=== PATIENT | male | born 1980 | race Caucasian/White ===

== ENCOUNTER 2019-08-03 15:31 | Emergency (ER) | payer OTHER ==
[~2019-08-03] VITALS: Ht 188 cm; Wt 117.9 kg
[~2019-08-03 15:31] MED LIST: LEVAQUIN500 MG PO; NORCO 5-325 TA1 EACH PO; OMEPRAZOLE20 MG PO; PERCOCET 5-3251 EACH PO; ZOFRAN ODT8 MG PO
[2019-08-03] MEDS ORDERED: OMEPRAZOLE40 MG PO (15:40)
[2019-08-03] MEDS ORDERED: LOSARTAN-HCTZ1 EAC1 PO (15:41)
[2019-08-03] MEDS ORDERED: VENTOLIN HFA18 GM INH (15:41)
[2019-08-03] MEDS ORDERED: AMLODIPINE BESY10 MG PO (15:41)
--- NOTE | 2019-08-04 18:30 | EKG ---
[facility] [address] [facility] [place], [place] [address] Signed Normal sinus rhythm Possible Left atrial enlargement Left ventricular hypertrophy Nonspecific T wave abnormality Abnormal ECG No previous ECGs available Confirmed by KATY WU DO ([id number]) on 08/04/2019 6:30:36 PM Electronically Signed By: KATY WU DO 08/04/19 1830 PATIENT NAME: KATHLEEN COTTO Electrocardiogram DATE OF : 82 PHYSICIAN: KATY WU DO REPORT #: [id number] REPORT IS CONFIDENTIAL AND NOT TO BE RELEASED WITHOUT AUTHORIZATION
== END 2019-08-03 18:28 | disposition home or self-care (01) ==
LOC: ED 15:31
DX: I48.91 Unspecified atrial fibrillation (principal); I10 Essential (primary) hypertension; K21.9 Gastro-esophageal reflux disease without esophagitis; F17.200 Nicotine dependence, unspecified, uncomplicated; Z79.899 Other long term (current) drug therapy
CPT/HCPCS: 71045; 80053; 83735; 84443; 84484; 85025; 93005; 93010; 99285-25

== ENCOUNTER 2020-10-19 14:36 | Emergency (ER) | payer OTHER ==
[~2020-10-19] VITALS: Ht 188 cm; Wt 117.9 kg
[~2020-10-19 14:36] MED LIST changes: +AMLODIPINE BESY10 MG PO; +LOSARTAN-HCTZ1 EAC1 PO; +OMEPRAZOLE40 MG PO; +VENTOLIN HFA18 GM INH
[2020-10-19] MEDS ORDERED: BISOPROLOL FUMA10 MG PO (19:59)
--- NOTE | 2020-10-20 02:28 | EKG ---
[facility] [address] [place] [address] Signed Sinus rhythm with 1st degree AV block Left axis deviation Voltage criteria for left ventricular hypertrophy Nonspecific T wave abnormality Abnormal ECG When compared with ECG of 19-OCT-2020 15:00, (Unconfirmed) Sinus rhythm has replaced Atrial fibrillation Inverted T waves have replaced nonspecific T wave abnormality in Inferior leads Nonspecific T wave abnormality, improved in Lateral leads Confirmed by JEAN CARLOS ARANA MD ([id number]) on 10/20/2020 2:28:55 AM Electronically Signed By: JEAN CARLOS ARANA MD 10/20/20 0228 PATIENT NAME: KATHLEEN COTTO Electrocardiogram DATE OF : 82 PHYSICIAN: JEAN CARLOS ARANA MD REPORT #: [id number] REPORT IS CONFIDENTIAL AND NOT TO BE RELEASED WITHOUT AUTHORIZATION
--- NOTE | 2020-10-20 02:28 | EKG ---
[facility] [address] [facility] [place] [address] Signed Atrial fibrillation Left axis deviation Voltage criteria for left ventricular hypertrophy Abnormal ECG When compared with ECG of 03-AUG-2019 15:39, Atrial fibrillation has replaced Sinus rhythm Nonspecific T wave abnormality now evident in Inferior leads Nonspecific T wave abnormality has replaced inverted T waves in Lateral leads Confirmed by JEAN CARLOS ARANA MD ([id number]) on 10/20/2020 2:28:11 AM Electronically Signed By: JEAN CARLOS ARANA MD 10/20/20 0228 PATIENT NAME: KIRTIMOYCAROLINA MULTANI Electrocardiogram DATE OF : 82 PHYSICIAN: JEANC ARLOS ARANA MD REPORT #: [id number] REPORT IS CONFIDENTIAL AND NOT TO BE RELEASED WITHOUT AUTHORIZATION
== END 2020-10-19 21:02 | disposition home or self-care (01) ==
LOC: ED 14:36
DX: I48.91 Unspecified atrial fibrillation (principal); K21.9 Gastro-esophageal reflux disease without esophagitis; I10 Essential (primary) hypertension; F17.200 Nicotine dependence, unspecified, uncomplicated; Z79.899 Other long term (current) drug therapy
CPT/HCPCS: 71045; 80053; 83735; 84443; 84484; 85025; 85379; 93005; 93010; 99152; 99285-25; J2270; J7030

== ENCOUNTER 2024-12-11 10:00 | Day surgery (SDC) | payer BC, OTHER ==
[~2024-12-11] VITALS: Ht 185.4 cm; Wt 127.0 kg
[~2024-12-11 10:00] MED LIST changes: +BISOPROLOL FUMA10 MG PO; +CEFAZOLIN SODIUM 3 GM in SODIUM CHLORIDE 0.9% 100 ML IV SCH; +FLECAINIDE ACET50 MG PO; +HEParin SOD (PORCINE) 5,000 UNIT/ML SDV SUB-Q SCH; +IBLOOD GLUCOSE TEST STRIP 1 EA TEST VI PRN; +INDAPAMIDE1.25 MG PO; +LACTATED RINGER'S 1,000 ML IV SCH; +LIDOCAINE HCL 1% 5 ML SDV INJ ONE; +METFORMIN HCL500 MG PO; +POTASSIUM CHLO20 ME2 PO; +VITAMIN D21250 MCG PO; +VITAMIN D310 MC5 PO; +metroNIDAZOLE/SODIUM CHLORIDE 100 ML IV ONE
[2024-12-11 10:11] VITALS: BP 183/105
--- NOTE | 2024-12-11 10:36 | NUR ---
LINDA AT IS WAITING AND IS HAIR MACHINE OPERATOR.
[2024-12-11] MEDS ORDERED: MIDAZOLAM HCL 2 MG/2 ML VIAL ONE (10:49)
[2024-12-11] MEDS ORDERED: BUPIVACAINE 0.75% IN DEXTROSE 2 ML AMP ONE (10:49)
[2024-12-11 10:55] VITALS: BP 176/98
--- NOTE | 2024-12-11 10:57 | NUR ---
PUBLIC ADMINISTRATION TEACHER IN TO TALK WITH PT AND HEPARIN GIVEN TO PUBLIC ADMINISTRATION TEACHER AP.
--- NOTE | 2024-12-11 11:19 | NUR ---
1105 TO 1115 CLIENT DEVELOPMENT DIRECTOR DID SADDLE BLOCK SEE ANESTHESIA RECORD. PT SITTING ON SIDE OF BED TILL 1125.
[2024-12-11] MEDS ORDERED: LIDOCAINE HCL 2% 5 ML SDV ONE (11:22)
[2024-12-11] MEDS ORDERED: metroNIDAZOLE/SODIUM CHLORIDE 100 ML IV ONE (11:29)
[2024-12-11] MEDS ORDERED: IBUPROFEN600 MG PO (12:22)
[2024-12-11] MEDS ORDERED: ACETAMINOPHEN500 MG PO (12:22)
[2024-12-11] MEDS ORDERED: OXYCODON-ACETA1 EAC2 PO (12:22)
[2024-12-11] MEDS ORDERED: ACETAMINOPHEN 500 MG TAB PO PRN (12:30)
[2024-12-11] MEDS ORDERED: LACTATED RINGER'S 1,000 ML IV SCH (12:30)
[2024-12-11] MEDS ORDERED: NALOXONE HCL 0.4 MG SYR IV PRN (12:30)
[2024-12-11] MEDS ORDERED: IBUPROFEN 600 MG TAB PO PRN (12:30)
[2024-12-11] MEDS ORDERED: OXYCODONE/APAP 7.5/325 TAB PO PRN (12:30)
--- NOTE | 2024-12-11 12:43 | NUR ---
returned call light given at bs.
[2024-12-11 13:15] VITALS: BP 178/100
--- NOTE | 2024-12-11 13:26 | NUR ---
1315 HAS BEEN UP TO VOID 900MLS. CAN GO HOME NOW.REVIEWED ALL DC INSTRUCTIONS WITH TP. AND . STATES THEY UNDERSTAND AND NO QUESTIONS. DRESSING SUPPLIES GIVEN JOSE WRIGHT.
--- NOTE | 2024-12-11 14:25 | NUR ---
12/11/24 1425 Luisa,Jeanie 1208 PT ARRVIED TO PACU ON RA AND TALKING TO RN. PT DENIES CONCERNS. PT DOES REPORT SMALL AMOUNT OF PAIN 02/27, "I AM STARTING TO FEEL IT." 1225 MD AT BEDSIDE TALKING TO PT. HOB INCREASED AND PT SIPPING WATER WITH NO CONCERNS. VSS. PLAN OF CARE DISCUSSED. 1235 PT RETURNED TO DS AND PLAN OF CARE DISCUSSED. VSS AND REPORT GIVEN.
--- NOTE | 2024-12-11 18:26 | OR ---
[facility] [address] [place], [place] [address] Signed DATE OF OPERATION: 12/11/2024 SURGEON: Lashae Ontiveros MD PREOPERATIVE DIAGNOSIS: Recurring pilonidal cystic disease. POSTOPERATIVE DIAGNOSIS: Recurring pilonidal cystic disease. PROCEDURE: Excision of pilonidal cyst. ANESTHESIA: Spinal with IV sedation, Kalyn Steele SAP ABAP PROGRAMMER and Sawyer Paige SAP ABAP PROGRAMMER and local 10 mL of 0.25% Marcaine with epinephrine. INDICATION: This large, very hirsute 44-year-old white man is a patient of JERONIMO Colvin. He has had episodic swelling and pain in the internatal cleft for more than a year. His symptoms have lasted at least two years upon clinical review. He has had no signs of sepsis related to this. He has had reasonably good control of his symptoms lately. Examination shows multiple pits in the internatal cleft and an area of ongoing chronic inflammation. He is admitted at this time to undergo excision of pilonidal cystic problem. We are anticipating wound packing as a primary mode of wound healing. He understands as does his the risk of bleeding, infection, recurrence, and other unforeseen complications. FINDINGS: There is no sign of abscess at this time. The tissue was fibrotic. There were multiple sinuses and pits in the internatal cleft with hair within them. Extension to the left lateral aspect was excised additionally. He tolerated procedure well. DESCRIPTION OF PROCEDURE: The patient was brought to the operating room. After undergoing a spinal anesthetic in the preop area, placed in prone mingo-knife position. Intravenous sedation was given as well. Preoperative antibiotic Ancef and Flagyl had been used. The buttocks were taped apart and the copious amounts of hair in the buttocks area and the internatal cleft were clipped. The area was prepared with a chlorhexidine solution and draped sterilely. Examination and probing with lacrimal duct probe showed several pits and sinuses with Electronically Signed By: LASHAE ONTIVEROS MD 12/11/24 1826 PATIENT NAME: KATHLEEN COTTO OPERATIVE REPORT DATE OF : 82 REPORT #: [id number] PHYSICIAN: LASHAE ONTIVEROS MD PCP: PERCY GARCIA PA-C REPORT IS CONFIDENTIAL AND NOT TO BE RELEASED WITHOUT AUTHORIZATION [facility] [address] [place] [id number] Signed hairy material in them. Elliptical incision was undertaken in the internatal cleft. Dissection was carried through to the postauricular fascia with electrocautery. An extension in the superior left side was additionally resected. There was no remaining pilonidal disease. Irrigation was undertaken after hemostasis was assured with electrocautery. 10 mL of 0.25% Marcaine with epinephrine was injected locally. The wound was packed with single ply gauze and ultimately peripad. He was returned to a supine position, ultimately taken to the recovery room in good condition having suffered no complication. Blood loss was minimal. MD EVARISTO Allred/SHANDA /[id number] cc: JERONIMO Colvin Copies: ~ Electronically Signed By: LASHAE ONTIVEROS MD 12/11/24 1826 PATIENT NAME: KIRTIKATHLEEN MULTANI OPERATIVE REPORT DATE OF : 82 REPORT #: [id number] PHYSICIAN: LASHAE ONTIVEROS MD PCP: PERCY GARCIA PA-C REPORT IS CONFIDENTIAL AND NOT TO BE RELEASED WITHOUT AUTHORIZATION
--- NOTE | 2024-12-15 10:57 | PATH ---
[facility] [address] [place], [place] [address] Signed SPECIMEN(S): A PILONIDAL CYST SPECIMEN SOURCE: A. PILONIDAL CYST CLINICAL HISTORY: Pilonidal cyst FINAL PATHOLOGIC DIAGNOSIS: Pilonidal cyst: - Benign skin and subcutaneous abscess with features consistent with clinical pilonidal cyst. [facility] MICROSCOPIC EXAMINATION: Histologic sections of all submitted blocks are examined by light microscopy. These findings, together with the gross examination, support the pathologic diagnosis. GROSS DESCRIPTION: The specimen, labeled and designated "Sierra, pilonidal cyst," is received in formalin and consists of unoriented skin ellipse that measure 6.0 x 0.8 cm with attached up to 2.2 cm yellow-hsieh, lobular fibroadipose tissue. The skin surface is pink-hsieh and centrally grooved. Specimen is inked. Sectioning through the specimen reveal subcutaneous cyst that measure 1.8 x 1.5 x 0.8 cm. The cyst is empty with disrupted wall. within the container is one additional skin tissue fragment that measures 4.5 x 0.7 x 0.7 cm. Specimen is inked. Sectioning through the specimen is grossly unremarkable. Cassette Summary: (A1) skin with a cyst, insurance verification representative section (A2) additional skin fragment, insurance verification representative sections JS (under the direct supervision of a pathologist) The Gross Description was prepared using a voice recognition system. The report was reviewed for accuracy; however, sound-alike word errors, addition and/or deletions may occur. If there is any question about this report, please contact Client Services. ADDITIONAL NOTES: PATIENT NAME: KATHLEEN COTTO PATHOLOGY DATE OF : 82 REPORT #: [id number] PHYSICIAN: BELÉN MIGUEL PCP: PERCY GARCIA PA-C REPORT IS CONFIDENTIAL AND NOT TO BE RELEASED WITHOUT AUTHORIZATION [facility] [address] [facility] [place] [address] Signed Immunohistochemical and/or in situ hybridization studies if performed in this case included appropriate positive controls that reacted as expected. This test was developed and its performance characteristics determined by [facility]. It has not been cleared or approved by the U.S. Food and Drug Administration. The FDA has determined that such clearance or approval is not necessary. This test is used for clinical purposes. It should not be regarded as investigational or for research. [facility] is certified under the Clinical Laboratory Improvement Amendments of 1988 (CLIA) as qualified to perform high complexity clinical laboratory testing. PERFORMING LABORATORY: Technical component was performed by [facility], [address] [place] [address] (CLIA# [id number]). Professional interpretation was performed by [facility] [place] - [address] [place] [address] (CLIA#: [id number]). Diagnostician: Buck Bañuelos MD Pathologist Electronically Signed 12/15/2024 Copies: ~ PATIENT NAME: KATHLEEN COTTO PATHOLOGY DATE OF : 82 REPORT #: [id number] PHYSICIAN: BELÉN MIGUEL PCP: PERCY GARCIA PA-C REPORT IS CONFIDENTIAL AND NOT TO BE RELEASED WITHOUT AUTHORIZATION
== END 2024-12-11 13:15 | disposition home or self-care (01) ==
LOC: DS 10:00
PROVIDERS: ATTEND Surgery
PROC: 0HB8XZZ Excision of Buttock Skin, External Approach (ICD-10-PCS; principal; 2024-12-11 11:35)
DX: L05.91 Pilonidal cyst without abscess (principal); I10 Essential (primary) hypertension; I48.91 Unspecified atrial fibrillation; G47.30 Sleep apnea, unspecified; K21.9 Gastro-esophageal reflux disease without esophagitis; Z79.899 Other long term (current) drug therapy; Z87.891 Personal history of nicotine dependence; Z90.49 Acquired absence of other specified parts of digestive tract
CPT/HCPCS: 00300; J0688; J1644; J2003; J2250; J2704; J7121